=== PATIENT | male | born 1945 | race Caucasian/White ===

== ENCOUNTER 2016-12-28 11:00 | Emergency (ER) | payer MEDICARE, MEDICAID ==
[~2016-12-28] VITALS: Ht 152.4 cm; Wt 63.8 kg
[~2016-12-28 11:00] MED LIST: ALBUTEROL SUL0.083 %; ALEVE220 M1 OR; AMLODIPINE2.5 MG PO; AMOXICILLIN/CL875 MG OR; AMOXICILLIN500 MG PO; AMOXICILLIN875 MG OR; AZELASTINE0.1 %; AZITHROMYCIN500 MG OR; BACTRIM DS1 TAB PO; BENZONATATE200 MG PO; BUSPAR10 M1 PO; CIPRO500 MG PO; CYANOCOBALAM1000 MC1 IJ; CYANOCOBALAM1000 MCG IM; DILAUDID2 MG OR; DOXYCYCL HYC100 MG PO; ERYTHROMYCIN O3.5 GM OP; FLONASE NASAL50 MCG; FLONASE SPRAY50 MC1; HIBICLENS4 % EX; HYDROCO/APAP1 T13 PO; HYDROCORTISO2.51 EX; IPRATROPIU0.5 MG/3 M IN; IPRATROPIUM BROMIDE/; KEFLEX500 MG PO; LAMISIL AT1 % EX; LIPITOR20 M1 PO; LISINOP/HCTZ1 TAB PO; LISINOPRIL10 MG PO; LISINOPRIL20 MG PO; MEDDOSEPAK OR; MULTIVITAMI1 PO; NAPROXEN EC500 MG OR; NASONEX50 MCG/AC; OXYMETAZOLINE; POLYTRIM OU; PREDNISONE20 MG PO; PROTONIX40 MG OR; RHINOCORT; RHINOCORT NAS; SENIOR VITAM OR; TRAMADOL HCL50 MG OR; TRIAMCINOLON0.11 EX; VESICARE5 MG PO; ZITHROMAX250 MG PO; [UNRECOGNIZED DRUG - SUPPLY] XX
[2016-12-28 11:33] LABS: HEMATOCRIT 41.4 % (39.0-50.0); HEMOGLOBIN 13.8 g/dl (14.0-18.0); IMMATURE GRANULOCYTES 0.7 % (0.0-1.0); MEAN CELL VOLUME 94.7 fL CALC (80.0-100.0); MEAN CORPUSCULAR HGB 31.6 pG CALC (26.0-32.0); MEAN CORPUSCULAR HGB CONC 33.3 g/L CALC (32.0-36.0); NEUT# 4.02 thou/uL (1.82-7.42); RED BLOOD COUNT 4.37 mill/uL (4.70-6.10); RED CELL DISTRI WIDTH 14.8 % (11.5-15.5)
[2016-12-28 11:44] LABS: ALBUMIN 4.2 g/dL (3.2-5.0); ALKALINE PHOSPHATASE 84 u/l (38-126); ANION GAP 14 (6-22 (CALC)); BILIRUBIN, TOTAL 0.6 mg/dL (0.0-1.4); BUN 18 mg/dL (8-23); BUN/CREATININE RATIO 23 (12-20 (CALC)); CARBON DIOXIDE 26 mmol/l (22-30); CHLORIDE 103 mmol/l (95-108); CREATININE 0.8 mg/dL (0.7-1.3); GFR > 60 ML/MIN (>=60 (CALC)); GFR FOR AFR.AMER. > 60 ML/MIN (>=60 (CALC)); GLUCOSE 98 mg/dL (82-115); POTASSIUM 4.6 mmol/l (3.5-5.1); SGOT/AST 28 u/l (19-48); SGPT/ALT 30 u/l (11-66); SODIUM 139 mmol/l (137-146)
[2016-12-28 11:56] LABS: MYOGLOBIN 62 ng/mL (0 - 121)
[2016-12-28 13:53] LABS: URINE BILIRUBIN - DIPSTICK NEGATIVE (NEGATIVE); URINE BLOOD DIPSTICK NEGATIVE (NEGATIVE); URINE CLARITY CLEAR; URINE COLOR YELLOW; URINE GLUCOSE - DIPSTICK NEGATIVE (NEGATIVE); URINE KETONE NEGATIVE (NEGATIVE); URINE LEUK ESTERASE NEGATIVE (NEGATIVE); URINE NITRITE - DIPSTICK NEGATIVE (Negative); URINE PROTEIN - DIPSTICK NEGATIVE (NEG-TRACE); URINE UROBILINOGEN - DIPSTICK 0.2 E.U./dL (0.2)
[2016-12-28 15:10] VITALS: BP 145/79
== END 2016-12-28 15:10 | disposition left against medical advice (07) ==
LOC: ED 11:00
PROVIDERS: Emergency Medicine
DX: J44.1 Chronic obstructive pulmonary disease with (acute) exacerbation (principal); Z72.0 Tobacco use; R07.9 Chest pain, unspecified; Z91.19 Patient's noncompliance with other medical treatment and regimen; R00.1 Bradycardia, unspecified; R06.02 Shortness of breath; R00.2 Palpitations

== ENCOUNTER 2017-01-25 10:59 | Emergency (ER) | payer MEDICARE, MEDICAID ==
[~2017-01-25] VITALS: Ht 165.1 cm; Wt 75.0 kg
[2017-01-25] MEDS ORDERED: LORTAB 5-325 MG1 TAB PO (12:41)
[2017-01-25] MEDS ORDERED: AUGMENTIN875TAB PO (12:41)
[2017-01-25 13:12] VITALS: BP 174/81
== END 2017-01-25 13:12 | disposition home or self-care (01) ==
LOC: ED 10:59
PROC: 0HQKXZZ Repair Right Lower Leg Skin, External Approach (ICD-10-PCS; principal; 2017-01-25)
DX: S81.811A Laceration without foreign body, right lower leg, initial encounter (principal); S91.032A Puncture wound without foreign body, left ankle, initial encounter; F17.210 Nicotine dependence, cigarettes, uncomplicated; W54.0XXA Bitten by dog, initial encounter; Y92.008 Other place in unspecified non-institutional (private) residence as the place of occurrence of the external cause

== ENCOUNTER 2017-02-04 10:45 | Emergency (ER) | payer MEDICARE, MEDICAID ==
[~2017-02-04] VITALS: Ht 165.1 cm; Wt 70.0 kg
[~2017-02-04 10:45] MED LIST changes: +AUGMENTIN875TAB PO; +LORTAB 5-325 MG1 TAB PO
[2017-02-04 10:53] VITALS: BP 133/77
== END 2017-02-04 11:05 | disposition home or self-care (01) ==
LOC: ED 10:45
DX: S81.811D Laceration without foreign body, right lower leg, subsequent encounter (principal); W54.0XXD Bitten by dog, subsequent encounter; Z48.02 Encounter for removal of sutures

== ENCOUNTER 2017-07-24 07:51 | Day surgery (SDC) | payer MEDICARE, MEDICAID ==
[~2017-07-24] VITALS: Ht 167.6 cm; Wt 59.0 kg
[2017-07-24] MEDS ORDERED: LOSARTAN POT50 MG PO (08:34)
[2017-07-24] MEDS ORDERED: MELOXICAM7.5 MG PO (08:41)
[2017-07-24] MEDS ORDERED: ALPRAZOLAM0.5 MG PO (08:41)
[2017-07-24] MEDS ORDERED: FISH OIL1000 MG PO (08:43)
[2017-07-24] MEDS ORDERED: TAMSULOSIN HCL0.4 MG PO (08:45)
[2017-07-24] MEDS ORDERED: FLUOXETINE20 MG PO (08:45)
[2017-07-24] MEDS ORDERED: D3 ULTRA ST5000 UNIT PO (08:46)
[2017-07-24] MEDS ORDERED: DRAMAMINE50 M1 PO (08:46)
[2017-07-24 11:12] VITALS: BP 135/73
== END 2017-07-24 11:30 | disposition home or self-care (01) ==
LOC: ENDO 07:51 → ORM 13:15 → ENDO 13:15
PROVIDERS: ATTEND Surgery
PROC: 0DJD8ZZ Inspection of Lower Intestinal Tract, Via Natural or Artificial Opening Endoscopic (ICD-10-PCS; principal; 2017-07-24)
DX: R19.7 Diarrhea, unspecified (principal); K64.4 Residual hemorrhoidal skin tags; K57.30 Diverticulosis of large intestine without perforation or abscess without bleeding

== ENCOUNTER 2018-05-21 09:26 | Emergency (ER) | payer MEDICARE, MEDICAID ==
[~2018-05-21] VITALS: Ht 167.6 cm; Wt 90.0 kg
[~2018-05-21 09:26] MED LIST changes: +ALPRAZOLAM0.5 MG PO; +D3 ULTRA ST5000 UNIT PO; +DRAMAMINE50 M1 PO; +FISH OIL1000 MG PO; +FLUOXETINE20 MG PO; +LOSARTAN POT50 MG PO; +MELOXICAM7.5 MG PO; +TAMSULOSIN HCL0.4 MG PO
[2018-05-21 10:27] LABS: HEMATOCRIT 39.6 % (39.0-50.0); HEMOGLOBIN 13.1 g/dl (14.0-18.0); IMMATURE GRANULOCYTES 1.5 % (0.0-5.0); MEAN CELL VOLUME 94.3 fL CALC (80.0-100.0); MEAN CORPUSCULAR HGB 31.2 pG CALC (26.0-32.0); MEAN CORPUSCULAR HGB CONC 33.1 g/L CALC (32.0-36.0); NEUT# 4.08 thou/uL (1.82-7.42); RED BLOOD COUNT 4.2 mill/uL (4.70-6.10); RED CELL DISTRI WIDTH 14.6 % (11.5-15.5)
[2018-05-21] MEDS ORDERED: OFLOXACIN0.3 % OS (10:33)
[2018-05-21 10:40] LABS: ANION GAP 15 (6-22 (CALC)); BUN 14 mg/dL (8-23); BUN/CREATININE RATIO 20 (12-20 (CALC)); CARBON DIOXIDE 22 mmol/l (22-30); CHLORIDE 105 mmol/l (95-108); CREATININE 0.7 mg/dL (0.7-1.3); GFR > 60 ML/MIN (>=60 (CALC)); GFR FOR AFR.AMER. > 60 ML/MIN (>=60 (CALC)); POTASSIUM 4.5 mmol/l (3.5-5.1); SODIUM 138 mmol/l (137-146)
[2018-05-21 16:10] VITALS: BP 138/80
== END 2018-05-21 16:10 | disposition short-term general hospital (02) ==
LOC: ED 09:26
PROVIDERS: Family Medicine
DX: S00.83XA Contusion of other part of head, initial encounter (principal); H53.8 Other visual disturbances; H57.12 Ocular pain, left eye; W10.9XXA Fall (on) (from) unspecified stairs and steps, initial encounter; Y92.009 Unspecified place in unspecified non-institutional (private) residence as the place of occurrence of the external cause; I10 Essential (primary) hypertension
CPT/HCPCS: Q9967

== ENCOUNTER 2020-03-02 17:25 | Inpatient (IN) | payer MEDICARE, MEDICAID ==
[~2020-03-02] VITALS: Ht 167.6 cm; Wt 61.0 kg
[~2020-03-02 17:25] MED LIST changes: +AMLODIPINE10 MG PO; +ARTIFI TEARS OU; +DOCU SOFT100 MG PO; +MELOXICAM15 MG PO; +OFLOXACIN0.3 % OS; +SENOKOT S1 TAB PO; +SENOKOT8.6 MG PO; +TRIPLE ANTI6 EX; +XANAX XR0.5 MG PO; +ZESTRIL40 MG PO; +[UNRECOGNIZED DRUG - OTHER] OU; +[UNRECOGNIZED DRUG - OTHER] PO
--- NOTE | 2020-03-02 17:25 | NUR ---
PATIENT ARRIVED GOING IN AN OUT OF RESPONSIVENESS. WHEN PATIENT BECOMES RESPONSIVE SPONTANEOUSLY PATIENT MOVES BILATERAL ARMS AND LEGS IN ERRATIC MOTIONS AND UNABLE TO DETERMINE WHAT PATIENT IS SAYING. PATIENT PUPILS PINPOINT AND FIXED. PATIENT NOT FOLLOW COMMANDS AND REACHING FOR STAFF AND MEDICAL EQUIPMENT. PATIENT HAS EXTRACTOR FILLER DEPUTY AT BEDSIDE. MD AT BEDSIDE FOR EVAL AND PREPARING FOR RAPID SEQUENCE INTUBATION.
--- NOTE | 2020-03-02 17:38 | NUR ---
PATIENT INTUBATED 8FR AND 22 AT THE LIP. PATIENT TOLERATED WELL. PATIENT HAS EQUAL RISE AND FALL BILATERAL BREATH SOUNDS AND POSITIVE CO2 DETECTOR
[2020-03-02 18:25] LABS: HEMOGLOBIN 14.3 g/dl (14.0-18.0); IMMATURE GRANULOCYTES 0.7 % (0.0-5.0); MEAN CELL VOLUME 99.3 fL CALC (80.0-100.0); MEAN CORPUSCULAR HGB 31.8 pG CALC (26.0-32.0); NEUT# 4.88 thou/uL (1.82-7.42); RED BLOOD COUNT 4.5 mill/uL (4.70-6.10); RED CELL DISTRI WIDTH 13.5 % (11.5-15.5)
[2020-03-02 18:29] LABS: HEMATOCRIT 44.7 % (39.0-50.0)
[2020-03-02 18:29] LABS: URINE BILIRUBIN - DIPSTICK NEGATIVE (NEGATIVE); URINE BLOOD DIPSTICK NEGATIVE (NEGATIVE); URINE COLOR YELLOW; URINE GLUCOSE - DIPSTICK NEGATIVE (NEGATIVE); URINE KETONE TRACE mg/dL (NEGATIVE); URINE LEUK ESTERASE NEGATIVE (NEGATIVE); URINE NITRITE - DIPSTICK NEGATIVE (Negative); URINE PROTEIN - DIPSTICK TRACE mg/dL (NEG-TRACE); URINE SPECIFIC GRAVITY >=1.030; URINE UROBILINOGEN - DIPSTICK 0.2 E.U./dL (0.2)
--- NOTE | 2020-03-02 18:30 | NUR ---
PATEINT REMAINS INTUBATED AT THIS TIME. OFFICER AT BEDSIDE. AWAITNG LAB AND RADIOLOGY RESULTS.
--- NOTE | 2020-03-02 18:45 | NUR ---
REPORT GIVEN TO ADAM LEMUS
--- NOTE | 2020-03-02 18:50 | NUR ---
IN ROOM TO ASSESS PT. ON VENTILATOR, UNRESPONSIVE AT THIS TIME. DIPRIVAN INFUSING WELL, NO REDNESS OR EDEMA NOTED. LANDERS CATH PATIENT AND DRAINING YELLOW URINE.
[2020-03-02 19:07] LABS: PROTHROMBIN TIME 9.6 SECONDS (9.0-12.5)
[2020-03-02 19:07] LABS: ALBUMIN 4.3 g/dL (3.2-5.0); ALKALINE PHOSPHATASE 92 u/l (38-126); ANION GAP 12 (6-22 (CALC)); BUN 20 mg/dL (8-23); BUN/CREATININE RATIO 22 (12-20 (CALC)); CARBON DIOXIDE 26 mmol/l (22-30); CHLORIDE 103 mmol/l (95-108); CPK 69 u/l (52-200); CREATININE 0.9 mg/dL (0.7-1.3); ETHYL ALCOHOL 0 mg/dl (0-30); GFR > 60 ML/MIN (>=60 (CALC)); GFR FOR AFR.AMER. > 60 ML/MIN (>=60 (CALC)); LIPASE 55 u/l (23-300); MAGNESIUM 2.5 mg/dL (1.6-2.3); SGOT/AST 28 u/l (19-48); SODIUM 137 mmol/l (137-146); TOTAL PROTEIN 7.4 g/dL (6.3-8.2)
[2020-03-02 19:10] LABS: BILIRUBIN, TOTAL 0.8 mg/dL (0.0-1.4)
[2020-03-02 19:39] LABS: TSH, 3RD GENERATION 1.05 uIU/mL (0.47 - 4.68)
--- NOTE | 2020-03-02 19:48 | NUR ---
PT. BP 47/32. LEVOPHED STARTED AT 8 MCG, 30 ML HR. 1948 DRIP INCREASED TO 9 MCG MIN. 1949 BP 90/55 LEVOPHED INCREASED TO 10 MCG MIN.1952 BP 119/67, 1958 139/79. 1999 PT. TAKEN TO X-RAY VIA STRETCHER. 2029 PT. RETURNED. BP 202/91 LEVOPHED DECREASED TO 8 MCG MIN. 2041 BP 199/91, 2052 BP 191/84 LEVOPHED DECREASED TO 7 MCG/MIN.
--- NOTE | 2020-03-02 21:03 | NUR ---
OG DRAINING A MODERATE AMT. LIGHT BROWN FLUID.
--- NOTE | 2020-03-02 21:16 | NUR ---
BP 167/76 LEVOPHED DECRESED TO 6 MCG/MIN.
--- NOTE | 2020-03-02 21:24 | NUR ---
BP NOW 142/61.
--- NOTE | 2020-03-02 21:30 | NUR ---
Admission Note Report Given to: RODDY LEMUS. Transported by: Wheelchair X Stretcher Transported with: X Nurse X Transporter X Patent IV X O2 X Pattern Chain Maker Supervisor Location: X ICU [facility]
--- NOTE | 2020-03-02 21:45 | NUR ---
PT. TAKEN TO ICU VIA STRETCHER WITH RESP. THERAPIST.
--- NOTE | 2020-03-02 21:55 | NUR ---
RECEIVED PT TO ICU BED 8. PT VERY RESTLESS, TRYING TO PULL ON VENT TUBE. PT ON VENT, RESP TECH AT BEDSIDE. PT WITH OG TUBE, LANDERS, IV TWIN CATH TO R AC. #20IV TO L AC. DCSO AT BEDSIDE. PT WITH CUFFS TO R HAND AND ANKLES. BRUISING NOTED AROUND ANKLES. DIPROVAN AND LEVOPHED GTT INFUSING ALONG WITH LR.
[2020-03-02 22:15] VITALS: BP 159/70
[2020-03-02 22:30] VITALS: BP 155/84
[2020-03-02 22:45] VITALS: BP 171/88
--- NOTE | 2020-03-02 22:45 | NUR ---
LEVOPHED TITRATED OFF. B/P 171/88
[2020-03-02 23:00] VITALS: BP 172/92
--- NOTE | 2020-03-02 23:00 | NUR ---
PT MOVING, PULLING AGAINST RESTRAINTS.
[2020-03-02 23:15] VITALS: BP 148/77
[2020-03-03] VITALS (60 sets, daily range): BP systolic 75–187; BP diastolic 43–102
--- NOTE | 2020-03-03 01:36 | NUR ---
RESP TECH AT BEDSIDE.
--- NOTE | 2020-03-03 02:00 | NUR ---
PT REMAINS ON VENT, MOVING LOWER EXTREMITIES, SOFT RESTRAINTS TO BILAT WRIST.
--- NOTE | 2020-03-03 04:00 | NUR ---
PT REMAINS ON VENT, SOFT RESTRAINTS TO BILAT WRIST. DCSO AT BEDSIDE. REMAINS ON DIPROVAN GTT.
[2020-03-03 05:49] LABS: HEMATOCRIT 41.8 % (39.0-50.0); HEMOGLOBIN 13.5 g/dl (14.0-18.0); IMMATURE GRANULOCYTES 0.3 % (0.0-5.0); MEAN CELL VOLUME 98.4 fL CALC (80.0-100.0); MEAN CORPUSCULAR HGB 31.8 pG CALC (26.0-32.0); MEAN CORPUSCULAR HGB CONC 32.3 g/dL CAL (32.0-36.0); NEUT# 5.65 thou/uL (1.82-7.42); RED BLOOD COUNT 4.25 mill/uL (4.70-6.10); RED CELL DISTRI WIDTH 13.7 % (11.5-15.5)
--- NOTE | 2020-03-03 06:00 | NUR ---
PT MOVING LOWER EXTREMITIES, PULLING AT WRIST RESTRAINTS. RESP TECH AT BEDSIDE FOR TUBE CULLEN CHANGE. DCSO AT BEDSIDE.
[2020-03-03 06:11] LABS: ALKALINE PHOSPHATASE 69 u/l (38-126); ANION GAP 9 (6-22 (CALC)); BILIRUBIN, TOTAL 0.5 mg/dL (0.0-1.4); BUN 18 mg/dL (8-23); BUN/CREATININE RATIO 23 (12-20 (CALC)); CALCULATED LDLCHOLESTEROL 94 mg/dL (62-129 (CALC)); CARBON DIOXIDE 26 mmol/l (22-30); CHLORIDE 106 mmol/l (95-108); CHOLESTEROL HDL RATIO 4.5 (<4.4 (CALC)); CREATININE 0.8 mg/dL (0.7-1.3); GFR > 60 ML/MIN (>=60 (CALC)); GFR FOR AFR.AMER. > 60 ML/MIN (>=60 (CALC)); HDL CHOLESTEROL 43 mg/dL (>=40); MAGNESIUM 2.4 mg/dL (1.6-2.3); POTASSIUM 3.8 mmol/l (3.5-5.1); SGOT/AST 24 u/l (19-48); SODIUM 138 mmol/l (137-146); TOTAL CHOLESTEROL 191 mg/dl (0-199); TOTAL TRIGLYCERIDES 268 mg/dl (30-149); VLDL CHOLESTROL 54 mg/dl (0-38 (CALC))
[2020-03-03 06:12] LABS: ALBUMIN 3.3 g/dL (3.2-5.0); TOTAL PROTEIN 5.5 g/dL (6.3-8.2)
--- NOTE | 2020-03-03 06:45 | NUR ---
REPORT RECEIVED FROM RODDY LEMUS. CARE ASSUMED.
--- NOTE | 2020-03-03 07:00 | NUR ---
PT RESTING IN BED INTUBATED AND SEDATED. SHIFT ASSESSMENT COMPLETED AT THIS TIME. IV PATENT X2. REPOSITIONED PT IN BED. GUARD AT BEDSIDE. CALL LIGHT IN REACH. WILL CONTINUE TO MONITOR CLOSELY.
--- NOTE | 2020-03-03 07:20 | NUR ---
RADIOLOGY AT BEDSIDE FOR PORTABLE CXR
--- NOTE | 2020-03-03 08:30 | NUR ---
CHANGED PROPOFOL BOTTLE AND TUBING AT THIS TIME.
--- NOTE | 2020-03-03 09:05 | NUR ---
DR MCNEILL AT BEDSIDE AT THIS TIME.
--- NOTE | 2020-03-03 09:52 | NUR ---
PT RESTING IN BED INTUBATED AND SEDATED AT THIS TIME. STARTING TO WEAN PROPOFOL. GUARD REMAINS AT BEDSIDE WILL CONTINUE TO MONTIOR.
--- NOTE | 2020-03-03 11:30 | NUR ---
lab at bedside to obtain troponin
--- NOTE | 2020-03-03 12:00 | NUR ---
bp 75/43 spoke with brian student counsellor 1l ns bolus.
--- NOTE | 2020-03-03 13:00 | NUR ---
LAB AT BEDSIDE TO REDRAW TROPONIN.
--- NOTE | 2020-03-03 13:22 | NUR ---
RT AT BEDSIDE FOR EKG
--- NOTE | 2020-03-03 14:00 | NUR ---
WEANING PROPOFOL DUE TO BRADYCARDIA. STARTING VERSED DRIP. GUARD AT BEDSIDE. URINE EMPTIED. 125CC. DR MCNEILL NOTIFIED.
--- NOTE | 2020-03-03 15:59 | NUR ---
PT RESTING IN BED INTUBATED AND SEDATED. HR REMAINS BRADYCARDIC 40S-50S. GUARD AT BEDSIDE. WILL CONTINUE TO CLOSELY MONITOR.
--- NOTE | 2020-03-03 16:50 | NUR ---
OFFICER FROM [facility] DEPT BROUGHT IN PT BELONGINGS WITH RECEIPT. BELONGINGS PLACED IN ROOM. PATIENT RELEASED ON OWN RECOGNIZANCE. PAPERWORK IN ROOM AND ON CHART.
--- NOTE | 2020-03-03 17:31 | NUR ---
PT LIFTING LEGS AND PULLING AT RESTRAINTS. ATIVAN 1MG GIVEN PER MD ORDER
--- NOTE | 2020-03-03 18:20 | NUR ---
PT RESTING IN BED INTUBATED AND SEDATED. APPEARS TO BE LESS AGITATED AT THIS TIME. HR REMAINS BRADYCARDIC. WILL CONTINUE TO MONITOR CLOSELY.
--- NOTE | 2020-03-03 19:10 | NUR ---
PATIENT IS SEDATED AND INTUBATED, RASS SCORE -3, PATIENT DOES NOT DO EYE CONTACT BUT DOES MOVE WITH PAINFUL STIMULI, HR RANGES IN THE 40'S, WHEN STARTLED HIS HR RAISES TO 60'S. VENT SETTINGS: AC, RATE 16, PRRP 5, FIO2 35%, TIDAL VOLUME 420. ET SIZE 8.0, 22 AT THE LIP, OG INTACT AT LCS, BROWN DRAINAGE NOTED. O2 SATS ARE 100%. AFEBRILE. BILAT WRIST RESTRAINTS INTACT, LOOSEENED FOR NURSING CARE. LANDERS INTACT, URINE IS YELLOW/CLOUDY. RAC TWIN CATH FLSUHES PROPERLY, NS AT 125 ML/HR, MIDAZOLAM DRIP AT 10 MG/HR. SCD'S LOOSENED FOR REPOSITONING AND HEELS ELEVATED. NURSE ASSESSMENT PERFORMED. MOUTH CARE PROVIDED, ET SUCTIONED AND MOUTH SUCTIONED, PT DOES BITE DOWN AND MOVES HEAD AROUND WHEN ATTEMPTING TO SUCTION. WILL CONTINUE TO MONITOR.
--- NOTE | 2020-03-03 21:13 | NUR ---
PATIENT REPOSITIONED TO HIS RIGHT SIDE. ET SUCTIONED. PT MOVES HEAD AROUND WHEN PROVIDING PATIENT CARE. HR RAISES TO 50'S.
[2020-03-03] MEDS ORDERED: XANAX0.5 MG PO (23:05)
[2020-03-03] MEDS ORDERED: AMLODIPINE BESY10 MG PO (23:05)
[2020-03-03] MEDS ORDERED: PROVENTIL HFA IN (23:05)
[2020-03-03] MEDS ORDERED: TAMSULOSIN0.4 MG PO (23:09)
[2020-03-03] MEDS ORDERED: FLONASE AL50 MCG/AC1 (23:09)
[2020-03-03] MEDS ORDERED: LEXAPRO10 MG PO (23:09)
[2020-03-03] MEDS ORDERED: CABERGOLINE PO (23:09)
[2020-03-03] MEDS ORDERED: LISINOPRIL40 MG PO (23:09)
[2020-03-03] MEDS ORDERED: MELOXICAM15 MG PO (23:10)
--- NOTE | 2020-03-03 23:24 | NUR ---
PATIENT REPSOITONED, RESTRAINTS RELEASED FOR REPOSITIONING, NOW INTACT. RASS SCORE -4, MIDAZOLAM DRIP WEANED TO 90 ML/HR. HEELS ELEVATED, ET SUCTIONED WELL MOUTH, MOUTH CARE PROVIDED.
[2020-03-04] VITALS (49 sets, daily range): BP systolic 112–203; BP diastolic 56–97
--- NOTE | 2020-03-04 02:07 | NUR ---
MOUTH WAS SUCTIONED AND PATIENT BECMAE AGITATED HAD HIS EYES OPEN, I HAD JUST WEANED HIS MIDAZOLAM DRIP TO 7MG/HR. NOW PLACED BACK AT 8 MG/HR. PT WAS REASSURED, AND RESTRAINTS ADJUSTED DUE TO HE WAS REACHING FOR HIS ET TUBE.
[2020-03-04 05:43] LABS: HEMATOCRIT 37.8 % (39.0-50.0); MEAN CELL VOLUME 100.8 fL CALC (80.0-100.0); MEAN CORPUSCULAR HGB CONC 31.7 g/dL CAL (32.0-36.0); RED BLOOD COUNT 3.75 mill/uL (4.70-6.10); RED CELL DISTRI WIDTH 13.9 % (11.5-15.5)
[2020-03-04 06:05] LABS: ALKALINE PHOSPHATASE 64 u/l (38-126); ANION GAP 6 (6-22 (CALC)); BILIRUBIN, TOTAL 0.5 mg/dL (0.0-1.4); BUN 9 mg/dL (8-23); BUN/CREATININE RATIO 14 (12-20 (CALC)); CARBON DIOXIDE 21 mmol/l (22-30); CHLORIDE 115 mmol/l (95-108); CREATININE 0.6 mg/dL (0.7-1.3); GFR > 60 ML/MIN (>=60 (CALC)); GFR FOR AFR.AMER. > 60 ML/MIN (>=60 (CALC)); POTASSIUM 3.6 mmol/l (3.5-5.1); SGOT/AST 20 u/l (19-48); SODIUM 139 mmol/l (137-146); TOTAL PROTEIN 4.8 g/dL (6.3-8.2)
[2020-03-04 06:11] LABS: ALBUMIN 2.6 g/dL (3.2-5.0)
--- NOTE | 2020-03-04 06:26 | NUR ---
CXR TAKEN, PT BECOMES AGITATED. MIDAZOLAM DRIP AT 8 MG/HR. HR RANGES 70'S WHEN PT IS STARTLED. BP RISES TO 170'S SYSTOLIC.
--- NOTE | 2020-03-04 07:15 | NUR ---
pt intubated and sedated; no apparent distress noted per web content writer; assessment completed at this time; pt sedated/ responds to vocal stimulation; does not make eye contact, follow commands; turns head in direction of web content writer voice; no s/s of pain noted; resp even and unlabored; lungs clear/ diminished; skin color wnl; vent intact and maintained with setting of AC mode, rate 18, TV 420, peep 5.0, FiO2 28%; 8.0 ETT tube intact secured at the 24cm lip line; hr reg; strong pulses; no edema noted; sr/sb on monitor; bilat scds intact; abd soft with bs present; no bm noted per web content writer; og tube intact to lis with brown gastric content noted; placement verified via air insertion/ ascult; twin cath present to rac with ivf/ versed gtt infusing at 8mg/hr; no redness or edema noted at site; oral care/ repositined done; bilagt wrist restraints intact; will continue to monitor
--- NOTE | 2020-03-04 08:00 | NUR ---
intubated and sedated; no apparent distress noted; vent intact and maintained; sr on monitor; friedman to gravity; restraints maintained; will continue to monitor closely
--- NOTE | 2020-03-04 08:45 | NUR ---
Dr Marcelino present at bedside to assess pt; plans for pt to be extubated today; RT notified; versed gtt being weaned; will continue to monitor
--- NOTE | 2020-03-04 09:32 | NUR ---
pt more alert; able to squeeze tis advertising copywriter hands as per request; pt continues with restless/anxiousness; restraints reinforced; pt education on condition and plan for extubation; will continue to monitor
--- NOTE | 2020-03-04 10:11 | NUR ---
remains intubated and sedated; no apparent distress noted; iv intact and patent; no redness or edema noted at site; friedman to gravity; sr on monitor; restraints intact; will continue to monitor
--- NOTE | 2020-03-04 10:27 | NUR ---
pt remains intubated; no apparent distress noted; resp even and unlabored; iv intact with versed being weaned; friedman to gravity; remains restless and anxious; restraints intact; sr/pvc on monitor; pt able to follow some commands such as squeezing this physician underwriter's hand and relaxing legs down; will continue to monitor
--- NOTE | 2020-03-04 11:30 | NUR ---
versed weaned; pt restless in bed; restraints reinforced; iv intact; friedman to gravity; vent intact and maintained; will continue to monitor
--- NOTE | 2020-03-04 11:57 | NUR ---
complete bed bath and linen change; oral care with toothette; will continue to monitor
--- NOTE | 2020-03-04 13:07 | NUR ---
vent changed to CPAP mode; pt able to follow verbal instructions per RT Howard and AD OPERATIONS INTERN Vest present at bedside;
--- NOTE | 2020-03-04 13:09 | NUR ---
Dr Marcelino present at bedside; pt follows verbal commands;
--- NOTE | 2020-03-04 13:17 | NUR ---
pt extubated per RT as per Dr Marcelino request; tolerated well; o2 per nc applied at 3L; orally sucitoned; restraints discontinued; will continue to monitor
--- NOTE | 2020-03-04 14:15 | NUR ---
awake in bed; remains drowsy; able to answer basic questions; continues to follow commands; iv intact and patent; bp elevated/ medicated; sr on monitor; friedman to gravity draining clear yellow urine; o2 per nc at 3L o2 sat 99-100%; call light within reach; will continue to monitor
--- NOTE | 2020-03-04 16:02 | NUR ---
resting in bed with eyes closed; easily aroused; offers no complaints; no apparent distress noted; iv intact and patent; friedman to gravity; sr on monitor; pt repositions self freq; suction at bedside/ pt has required suctioning frequently since extubation; call light within reach; will continue to monitor
--- NOTE | 2020-03-04 18:16 | NUR ---
resting in bed with eyes closed; no apparent distress noted; pt easily arousable; offers no complaints; oral care with toothette; friedman to gravity; iv intact and patent; no redness or edema noted at site; sr/pvc on monitor; call light within reach
--- NOTE | 2020-03-04 19:05 | NUR ---
PT. DROWSY; ALERT TO SELF ONLY. ASSESSMENT COMPLETED. IV SITE PATENT TO RAC; PT. WITH GENERALIZED SWELLING NOTED. O2 INFUSING @3LITERS/MIN PER NC AND SPO2 100%. SR ON THE MONITOR AT THIS TIME. VSS. ORAL CARE PROVIDED AND ORAL SUCTION PERFORMED. REPOSITIONED PT. IN BED. LANDERS CATHETER IN PLACE AND DRAINING AT GRAVITY LEVEL. WILL CONTINUE TO MONITOR. CALL LIGHT IS IN REACH. WILL CONTINUE TO MONITOR.
--- NOTE | 2020-03-04 20:48 | NUR ---
PT. RESTLESS AND PULLING AT CORDS ATTEMPTED TO RE-ORIENT NUMEROUS TIMES AND UNSUCCESSFUL; MEDICATED WITH ORDERED PRN ATIVAN; WILL REASSESS. BED ALARM ON FOR SAFETY.
--- NOTE | 2020-03-04 21:37 | NUR ---
PT. CONTINUES TO BEND RIGHT ARM AND OCCLUDING IV SITE; NEW IV SITE STARTED TO LFA X2 ATTEMPT AND IVF SWITCHED TO NEW SITE AND RAC IS SL NOW.
--- NOTE | 2020-03-04 23:47 | NUR ---
PT. RESTLESS AND REMOVED IV SITE TO LFA; PT. HAD CHEWED THE J-LOOP; CATHETHER TIP INTACT. MANUAL B/P 180/78 AND ORDERED PRN ENALOPRIL GIVEN; WILL REASSESS. PT. ASSISTED ON AND OFF BEDPAN, PT. ONLY HAD A SMEAR OF BM. ASSISTED TO REPOSITION.
[2020-03-05] VITALS (18 sets, daily range): BP systolic 142–194; BP diastolic 66–99
--- NOTE | 2020-03-05 01:15 | NUR ---
PT. CLEANED OF A MODERATE INCONTINENCE OF STOOL; PT. CONTINUES TO PULL AT LANDERS CATHETER AND OTHER TUBING; RE-ORIENTED MULTIPLE TIMES. WILL CONTINUE TO MONITOR, CALL LIGHT IS IN REACH. BED ALARM ON.
--- NOTE | 2020-03-05 01:43 | NUR ---
PT. REMAINS RESTLESS AND MEDICATED WITH ORDERED PRN ATIVAN; WILL REASSESS.
--- NOTE | 2020-03-05 04:20 | NUR ---
PT. REMAINS RESTLESS. SIPS OF WATER PROVIDED AND TOLERATED WELL. AM LABS DRAW BY THIS BAIT DIGGER. MANUAL B/P OBTAINED 164/72. WILL CONTINUE TO MONITOR. BED ALARM ON FOR SAFETY. CALL LIGHT IS IN REACH.
[2020-03-05 04:32] LABS: HEMATOCRIT 38.2 % (39.0-50.0); HEMOGLOBIN 12.5 g/dl (14.0-18.0); MEAN CELL VOLUME 97.2 fL CALC (80.0-100.0); MEAN CORPUSCULAR HGB 31.8 pG CALC (26.0-32.0); MEAN CORPUSCULAR HGB CONC 32.7 g/dL CAL (32.0-36.0); RED BLOOD COUNT 3.93 mill/uL (4.70-6.10); RED CELL DISTRI WIDTH 13.3 % (11.5-15.5)
[2020-03-05 05:14] LABS: ALBUMIN 3.1 g/dL (3.2-5.0); ALKALINE PHOSPHATASE 71 u/l (38-126); ANION GAP 12 (6-22 (CALC)); BUN 6 mg/dL (8-23); BUN/CREATININE RATIO 9 (12-20 (CALC)); CARBON DIOXIDE 22 mmol/l (22-30); CHLORIDE 109 mmol/l (95-108); CREATININE 0.6 mg/dL (0.7-1.3); GFR > 60 ML/MIN (>=60 (CALC)); GFR FOR AFR.AMER. > 60 ML/MIN (>=60 (CALC)); MAGNESIUM 1.9 mg/dL (1.6-2.3); POTASSIUM 3.8 mmol/l (3.5-5.1); SGOT/AST 29 u/l (19-48); SODIUM 139 mmol/l (137-146); TOTAL PROTEIN 5.5 g/dL (6.3-8.2)
[2020-03-05 05:15] LABS: BILIRUBIN, TOTAL 0.8 mg/dL (0.0-1.4)
--- NOTE | 2020-03-05 05:42 | NUR ---
pt. continues being restless and aggitated throwing his legs over the side rails. attempted to give relaxation techniques and re-orinetation without success; medicated with ordered prn ativan; will reassess.
--- NOTE | 2020-03-05 06:10 | NUR ---
PT. MEDICATED WITH IV PRN ENALAPRIL FOR B/P 175/66; WILL REASSESS. O2 TITRATED DOWN TO 2LITERS/MIN PER NC AND SPO2 REMAINS 99-100%. BED ALARM ON FOR SAFTEY. IV SITE PATENT AND ORDERED IVF INFUSING WELL.
--- NOTE | 2020-03-05 07:00 | NUR ---
pt noted restless in bed; fidgeting with monitoring cords and friedman catheter; no apparent distress noted; assessment completed at this time; pt alert to person only; pinpoint pupils; speech very low (whispers) and raspy; pt denies pain; no n/v noted; resp even and unlabored/ shallow; lungs clear/diminished; skin color wnl; o2 per nc at 2L; o2 sat 99%; suction at bedside; hr reg; strong pulses; generalized edema/ facial edema noted; sr/pvc on monitor; bilat scds intact; abd soft with bs present; no bm noted per blog writer; friedman to gravity draining clear yellow urine; twin cath to rac flushed and patent; ivf infusing; pt cont to bend arm; plan of care/ am meds explained; call light within reach; bed alarm activated for pt safety; will continue to monitor
--- NOTE | 2020-03-05 07:20 | NUR ---
bed alarming; pt attempting to climb out of bed; repositioned for comfort; will continue to monitor
--- NOTE | 2020-03-05 07:38 | NUR ---
bed alarming; pt noted with both legs out of the bed; lg loose stool incontinence noted; pericare per staff; catheter care; repositioned for comfort; pt able to take am meds without difficulty; will continue to monitor closely
--- NOTE | 2020-03-05 08:05 | NUR ---
resting in bed with eyes closed; no apparent distress noted; sr/pvc on monitor; friedman to gravity; o2 per nc; call light within reach; will continue to monitor
--- NOTE | 2020-03-05 09:00 | NUR ---
Dr Marcelino present at bedside to assess pt and discuss plan of care; verbal order received to apply restraints due to pt pulling at monitoring cords, friedman, scds; will continue to monitor
--- NOTE | 2020-03-05 09:40 | NUR ---
pt has removed o2 sat monitoring probe; senior technical writer attempts to reapply; pt now kicking at nursing staff; staff attempting to reorient pt; repositioned for comfort; wrist restraints reinforced being that pt has removed right wrist from restraint; scds removed per staff d/t pt cont pulling at sleeves; bilat knee high abilio hose applied; po fluids provided; friedman to gravity; bed alarm set for pt safety; will continue to monitor
--- NOTE | 2020-03-05 10:05 | NUR ---
awake; cont to have legs out of bed; restraints intact; o2 per nc; friedman to gravity; will continue to monitor
--- NOTE | 2020-03-05 10:30 | NUR ---
awake in bed; confused; legs noted out of bed; lg incontinence of loose brown stool; pt noted digging in stool; restraints released for nursing care; pt becomes slightly combative/ swatting at staff; pericare per staff/ partial bath; medicated with ativan as per orders for agitation; #20 started to lw x1 attempt; iv fluids infusing without complication; st/pvc on monitor; bed alarm active for pt safety; continue to monitor
--- NOTE | 2020-03-05 11:26 | NUR ---
awake but drowsy; noted with legs out of bed; iv intact; friedman to gravity; pulse ox probe re-applied; o2 per nc; sr/ pvc on monitor; reoriented; oral care provided with toothette; po fluids provided; repositioned for comfort; will continue to monitor
--- NOTE | 2020-03-05 13:03 | NUR ---
pt noted climbing out of bed; drowsy; iv intact and patent; no redness or edema noted at site; st on monitor; o2 per nc; restraints reinforced; will continue to monitor closely
--- NOTE | 2020-03-05 13:12 | NUR ---
awake in bed; agitated/anxious; unable to reoriented; tp continuously attempting to climb out of bed; st pac/pvc 140s on monitor; iv intact and patent; call light within reach; will continue to monitor
--- NOTE | 2020-03-05 13:37 | NUR ---
pt very anxious; pericare/ partial bath per staff for lg loose incont brown stool; iv to rac removed due to partially dislodged; catheter tip intact; bruising noted site from kerlix security dressing; repositioned; friedman to gravity; #20 to lw remains intact; now nsr on monitor; will continue to monitor
--- NOTE | 2020-03-05 14:00 | NUR ---
pt awake with legs out of bed; restraints intact; o2 per nc; iv intact and patent; sr/pt pvc on monitor; friedman to gravity; pt states "I want to get up"; condition explained; pt repositioned for comfort; will continue to monitor
--- NOTE | 2020-03-05 14:42 | NUR ---
Dr Marcelino informed of pt condition/ agitation and ineffectiveness of ativan; EKG results reviewed; orders received and on chart
--- NOTE | 2020-03-05 16:05 | NUR ---
awake in bed; restraints intact; pt noted kicking bottom side rail; st on monitor; continues to attempt to climb out of bed; friedman to gravity; o2 per nc; call light within reach; will continue to monitor
--- NOTE | 2020-03-05 18:07 | NUR ---
awake in bed; restless/ anxious; cont to attempt to climb out of bed; iv intact and patent; no redness or edema noted at site; o2 per nc; friedman to gravity; restraints intact; oral care toothette; pt declined meal/ medical underwriter at bedside attempting to feed; bed alarm set; call light within reach
--- NOTE | 2020-03-05 19:10 | NUR ---
resting quietly. nad. hob remains elevated. o2 cont per nc. child monitor shows sinus rhythm pvcs hr 84. #20 lt wrist. ns infusing @ 125cchr. friedman cath in place. urine clear yellow. bilat wrist restraints & fall precautions cont.
--- NOTE | 2020-03-05 22:00 | NUR ---
eyes closed. no distress. child monitor shows sinus rhythm hr 104.
[2020-03-06] VITALS (13 sets, daily range): BP systolic 142–184; BP diastolic 57–122
--- NOTE | 2020-03-06 00:01 | NUR ---
eyes closed. no distress. o2 cont. nad.
--- NOTE | 2020-03-06 02:00 | NUR ---
resting quietly. resps even & unlabored. nad. ivf infusing well.
--- NOTE | 2020-03-06 05:14 | NUR ---
lab here. blood drawn.
--- NOTE | 2020-03-06 05:20 | NUR ---
am care given x2 assists. alyssa well.
[2020-03-06 05:49] LABS: HEMATOCRIT 42.9 % (39.0-50.0); HEMOGLOBIN 14.2 g/dl (14.0-18.0); MEAN CELL VOLUME 95.3 fL CALC (80.0-100.0); MEAN CORPUSCULAR HGB 31.6 pG CALC (26.0-32.0); MEAN CORPUSCULAR HGB CONC 33.1 g/dL CAL (32.0-36.0); RED BLOOD COUNT 4.5 mill/uL (4.70-6.10); RED CELL DISTRI WIDTH 12.7 % (11.5-15.5)
[2020-03-06 06:14] LABS: ALKALINE PHOSPHATASE 85 u/l (38-126); ANION GAP 15 (6-22 (CALC)); BUN 5 mg/dL (8-23); BUN/CREATININE RATIO 12 (12-20 (CALC)); CARBON DIOXIDE 24 mmol/l (22-30); CHLORIDE 100 mmol/l (95-108); CREATININE 0.5 mg/dL (0.7-1.3); GFR > 60 ML/MIN (>=60 (CALC)); GFR FOR AFR.AMER. > 60 ML/MIN (>=60 (CALC)); POTASSIUM 4.1 mmol/l (3.5-5.1); SGOT/AST 47 u/l (19-48); SODIUM 135 mmol/l (137-146); TOTAL PROTEIN 6.6 g/dL (6.3-8.2)
[2020-03-06 06:19] LABS: ALBUMIN 3.9 g/dL (3.2-5.0)
--- NOTE | 2020-03-06 06:30 | NUR ---
legs over siderails. pullied iv out, cardiac nurse practitioner off. #20 lac x1 attempt. ativan 1mg ivp given.
--- NOTE | 2020-03-06 07:06 | NUR ---
pt resting in bed with eyes closed; very restless; easily aroused; offers no complaints; assessment completed at this time; pt alert to person only; speech garbled and low; no s/sx/ grimaces of pain noted; no n/v noted; resp even and unlabored; lungs clear/ diminished bases; skin color wnl; o2 per nc at 2: o2 sat 99%; senior media director cough noted; suction set up at bedside; hr reg; strong pulses; trace generalized edema noted; sr/pvc on monitor; bilat knee high abilio hose intact; abd soft with bs present; no bm noted per jingle writer; friedman to gravity draining clear yellow urine; cath strap intact; #20 to lac patent with ivf infusing without complication; no redness or edema noted at site; bilat wrist restraints released for nursing care/rom and reapplied; plan of care explained; repositioned; call light within reach; will continue to monitor
--- NOTE | 2020-03-06 08:20 | NUR ---
awake in bed; restless/anxious; noted with legs out of bed; restraints remain intact; pt fed 25% breakfast and tolerated well; st/pvc on monitor; friedman to gravity; o2 per nc; iv intact and patent; no redness or edema noted at site; call light within reach; will continue monitor
--- NOTE | 2020-03-06 09:00 | NUR ---
Dr Marcelino present at bedside; MD informed of tachycardia with agitation; MD also informed of increase in frequency of pvc; cardiac strips reviewed per md; will continue to monitor
--- NOTE | 2020-03-06 09:02 | NUR ---
arrythmia/idioventricular rhythm noted; noted; Dr Coronado on unit to reviewed; orders received to consult cardiology and notify tomorrow am; will continue to monitor
--- NOTE | 2020-03-06 10:15 | NUR ---
attempting to climb out of bed; no apparent distress noted; iv to lac noted leaking; iv catheter removed with tip intact; #22 started to rw x1 attempt; flushed and patent; ivf resumned; cleansed for sm loose bm; catheter care; repositioned; sr/ freq pvc on monitor; o2 per nc; will continue to monitor closely;
--- NOTE | 2020-03-06 11:50 | NUR ---
resting in bed/snoring; no apparent distress noted; iv intact and patent; no redness or edema noted at site; sr/pvc on monitor; friedman to gravity; o2 per nc; call light within reach; bed alarm set for pt safety; restraints remain in place; will continue to monitor
--- NOTE | 2020-03-06 14:00 | NUR ---
resting in bed; calm; no apparent distress noted; resp even and unlabored; iv intact and patent; o2 per nc; friedman to gravity; restraints intact; will continue to monitor
--- NOTE | 2020-03-06 15:20 | NUR ---
report given to Aroldo Castañeda LPN
--- NOTE | 2020-03-06 15:26 | NUR ---
medicated with vasotec iv for sbp 184
--- NOTE | 2020-03-06 19:30 | NUR ---
drowsy. does not fully arouse. o2 cont per nc. hob remains elevated. school lunch monitor shows sinus rhythm pvcs occas 3 beat runs hr 76. #22 rt wrist ns infusing @ 125cchr. friedman cath in place. urine clear yellow. bilat wrist restraints, fall precautions & bed alarm conts.
--- NOTE | 2020-03-06 22:00 | NUR ---
eyes closed. no distress. ardiac monitor shows sinus rhythm hr 78.
[2020-03-07] VITALS (17 sets, daily range): BP systolic 91–157; BP diastolic 43–80
--- NOTE | 2020-03-07 00:01 | NUR ---
resting quietly. nad. o2 cont. hob remains elevated.
--- NOTE | 2020-03-07 02:00 | NUR ---
resting quietly. resps even & unlabored. nad. lead data entry operator shows sinus kenyatta pvcs hr 58.
--- NOTE | 2020-03-07 04:30 | NUR ---
awake. calling out "i want to go home." oriented to name & place. drank 1 glass water & 1 can gatorade without coughing/choking.
--- NOTE | 2020-03-07 05:00 | NUR ---
eyes closed. nad.
--- NOTE | 2020-03-07 06:00 | NUR ---
eyes closed. no distress. uop less tonight.
--- NOTE | 2020-03-07 07:31 | NUR ---
REPORT RECEIVED FROM SALO FREITAS.
--- NOTE | 2020-03-07 07:45 | NUR ---
PT RESTING IN BED SEMI FOWLERS WITH EYES CLOSED AND NO SIGNS OF DISTRESS; RESPIRATIONS EVEN AND UNLABORED ON OXYGEN 2L VIA NC. PT AWAKENS TO LOUD VERBAL STIMULI; VERY DROWSY AND NEEDS FREQUENT VERBAL CUES TO STAY AWAKE AND FOCUSED. ORIENTED TO NAME AND ONLY. STATES HE DOES NOT KNOWN WHERE HE IS OR THE YEAR; SPEECH GARBLED AND DIFFICULT TO UNDERSTAND. PERRLA; PT DOES HAVE RIGHT SIDED FACIAL DROOP AND PARTIAL GAZE PALSY TO THE RIGHT EYE LOOKING TOWARDS THE RIGHT; PT STATES HE HAS DIFFICULTY SEEING, BUT SCORES ZERO ON ALL VISUAL NIH TESTS. BILATERAL SOFT WRIST RESTRAINTS INTACT; REMOVED AT THIS TIME; GOOD CSM TO HANDS. IV FLUIDS INFUSING WITHOUT DIFFICULTY; IV SITE APPEARS HEALTHY. 10F LANDERS CATHETER DRAINING CLEAR YELLOW URINE TO GRAVITY; LEG STRAP INTACT TO LEFT THIGH. SCDS REAPPLIED AND NOW INTACT TO BLE. SAFETY MEASURES IN PLACE INCLUDING BED ALARM. CALL LIGHT WITHIN REACH.
--- NOTE | 2020-03-07 08:00 | NUR ---
SPO2 98-100% ON 2L; OXYGEN TITRATED DOWN TO 1L VIA NC. PT ENCOURAGED TO ASSIST HIMSELF WITH REPOSITIONING AND MOVE AROUND IN THE BED FOR STRENGTH TRAINING. PT STATES THAT HE WANTS TO GO HOME; REINFORCED HIS NEED TO GET STRONGER AND BE ABLE TO FEED HIMSELF. PT ASSITED WITH RESPOSITIONING HE GRIPPED SIDE RAILS AND BENT KNEES TO HIGH FOWLERS AND SET UP FOR BREAKFAST. PT HAS DIFFICULTY WITH EATING; ELECTRICAL FITTER DRINKS, BUT DOES NOT BRING CUP/STRAW TO MOUTH; SAME WITH SPOON; MAKES EFFORT TO BRING SPOON TO MOUTH BUT UNABLE TO REACH MOUTH. PT ASSISTED WITH MEAL; ATE 100% AND DRANK ALL COFFEE; REPORTS THAT HE TYPICALLY DRINKS 4 CUPS OF COFFEE EVERY MORNING.
--- NOTE | 2020-03-07 08:15 | NUR ---
DR. VARNER AT BEDSIDE. PT MORE ALERT BY THIS TIME; NOW ORIENTED TO PERSON AND PLACE; ABLE TO STATE THE MONTH, BUT NOT THE YEAR. ANSWERS SOME QUESTIONS APPROPRIATELY, BUT HAS OCCASIONAL INAPPROPRIATE ANSWERS AND WILL BEGIN TALKING ABOUT UNRELATED SUBJECTS AND VERY DIFFICULT TO UNDERSTAND AT TIMES. NIH PERFORMED WITH MD AT BEDSIDE WITH A SCORE OF 8; DROWY AND NOT FULLY ALERT, PARTIAL BEST GAZE, PATRIAL RIGHT SIDED FACIAL DROOP, LIMB ATAXIA, AND BEST LANGUAGE. PT CONTINUES TO REQUEST GOING HOME. COOPERATIVE SINCE RESTRAINTS ARE REMOVED; DOES CALL OUT FOR NURSE. USING CALL LIGHT A TELEPHONE; REMINDED ON HOW TO USE CALL LIGHT.
--- NOTE | 2020-03-07 08:20 | NUR ---
LAB AT BEDSIDE FOR BLOOD DRAW. ORDERS RECEIVED FROM DR. MARIN INCLUDING MRI TO RULE OUT CVA.
[2020-03-07 08:53] LABS: ALKALINE PHOSPHATASE 66 u/l (38-126); BUN 7 mg/dL (8-23); BUN/CREATININE RATIO 14 (12-20 (CALC)); CARBON DIOXIDE 27 mmol/l (22-30); CHLORIDE 101 mmol/l (95-108); CREATININE 0.5 mg/dL (0.7-1.3); GFR > 60 ML/MIN (>=60 (CALC)); GFR FOR AFR.AMER. > 60 ML/MIN (>=60 (CALC)); SGOT/AST 27 u/l (19-48); SODIUM 132 mmol/l (137-146); TOTAL PROTEIN 5.3 g/dL (6.3-8.2)
[2020-03-07 08:57] LABS: ALBUMIN 3.1 g/dL (3.2-5.0); ANION GAP 7 (6-22 (CALC)); BILIRUBIN, TOTAL 0.5 mg/dL (0.0-1.4); POTASSIUM 3.2 mmol/l (3.5-5.1)
--- NOTE | 2020-03-07 09:33 | NUR ---
MEDS GIVEN CRUSHED IN PUDDING DUE TO FULL LIQUID DIET; PT DOES HAVE SOME LOOSE NONPRODUCTIVE COUGHING. SPO2 97-98% ON 1L; OXYGEN REMOVED AND NOW ON ROOM AIR; SPO2 CURRENTLY 96%. WILL CONTINUE TO MONITOR.
[2020-03-07 09:56] LABS: MAGNESIUM 1.8 mg/dL (1.6-2.3)
--- NOTE | 2020-03-07 10:26 | NUR ---
TYLENOL GIVEN WITH AM MEDS FOR MILD BILATERAL SHOULDER PAIN WITH GOOD EFFECT. POTASSIUM ALSO GIVEN FOR K+ OF 3.2. VISITOR AT BEDSIDE.
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
--- NOTE | 2020-03-07 11:39 | NUR ---
PHYSICAL THERPAY AT BEDSIDE; PT STOOD WITH ASSISTANCE AND TOOK SMALL STEPS TO BEDSIDE CHAIR. NOW RESTING IN CHAIR WITH FEET ELEVATED WATCHING TV. SR ON MEDICAL DIR; VSS; SPO2 95%. CALL LIGHT WITHIN REACH; CURTAIN OPEN FOR EASY VISUALIZATION OF PATIENT.
--- NOTE | 2020-03-07 12:05 | NUR ---
SPEECH THERAPY AT BEDSIDE. PT SITTING UP IN CHAIR AND SET UP FOR LUNCH; MORE ALERT AND ANSWERING QUESTIONS APPROPRIATELY, HOWEVER, SOME ANSWERS ARE INCORRECT.
--- NOTE | 2020-03-07 12:46 | NUR ---
UP TO BSC FOR SMALL BOWEL MOVEMENT; PARTIAL BATH AND LANDERS CARE PROVIDED AND LINENS CHANGED. INVENTORY SHEET UPDATED MINUS ID AND ONE SET OF KEYS; GLASSES PROVIDED TO PATIENT. AGAIN RESTING IN BEDSIDE CHAIR. COOPERATIVE, BUT DOES REQUIRE FREQUENT REMINDERS TO CALL FOR ASSISTANCE AND NOT GET UP WITHOUT HELP. CALL LIGHT REVIEWED AGAIN AND WITHIN REACH.
--- NOTE | 2020-03-07 15:19 | NUR ---
PT RESTLESS AND PULLING ON WIRES; WHEN REDIRECTED PT STATES THAT HE NEEDS TO HAVE A BOWEL MOVEMENT; INCONTINENT OF MODERATE AMOUNT OF LOOSE STOOL. ASSISTED TO BSC TO CONTINUE BM. HYGIENE PROVIDED AND PT ASSISTED INTO WHEELCHAIR WITH BRIEF IN PLACE. NOW SITTING CALMLY WATCHING TV. ONLY REQUEST AT THIS TIME IS FOR COFFEE.
--- NOTE | 2020-03-07 15:30 | NUR ---
OFF UNIT VIA WHEELCHAIR FOR MRI.
--- NOTE | 2020-03-07 16:47 | NUR ---
BACK TO UNIT AND POSITIONED INTO BED SEMI FOWLERS; RECONNECTED TO ATTACHMENTS; PT ONE PERSON ASSIST DUE TO WEAKNESS. VSS; SPO2 97-99% ON RA. SCDS IN PLACE. IV SITE FLUSHES WELL AND IV FLUIDS INFUSING AGAIN AT 125ML/HR. COFFEE PROVIDED PER PT REQUEST. CALL LIGHT REVIEWED AND WITHIN REACH. BED ALARM ON.
--- NOTE | 2020-03-07 18:15 | NUR ---
PT USED CALL LIGHT TO REQUEST HIS CELL PHONE; PT BEGAN MAKING PHONE CALLS, SPEAKING LOUDLY AND BECOMING AGITATED. PT ENCOURGED TO NOT MAKE ANY MORE PHONE CALLS AND TRY TO RELAX AND EAT HIS DINNER. REQUESTING MORE COFFEE.
--- NOTE | 2020-03-07 19:30 | NUR ---
PATIENT IS ALERT AND ORIENTED TO NAME, , CURRENT MONTH AND YEAR, AND PLACE. HAS GARBLED SPEECH. NO DROOP NOTED, BILATERAL JOURNALISM INTERN ARE WEAK. FOLLOWS DIRECTIONS. NURSE ASSESSMENT PERFORMED. LANDERS CATHETER INTACT, DRAINS YELLOW/CLOUDY URINE. R WRIST 22 G IV INTACT, FLSUHES PROPERLY, NS AT 125 ML/HR. SR ON TELEMETRY. ON RA, NO SOB NOTED, O2 SATS ARE GREATER THAN 95%. NO COMPLAINTS OF PAIN. NO ACUTE DISTRES SSHOWN. CALL LIGHT WITHIN REACH. SELF REPOSITIONS WITH VERBAL CUEING.
--- NOTE | 2020-03-07 21:34 | NUR ---
PATIENT UP TO BSC WITH X1 ASSIST, UNSTEADY GAIT. HAD A SMALL LOOSE BM. NOW BACK TO BED. CALL LIGHT WITHIN REACH.
--- NOTE | 2020-03-07 21:45 | NUR ---
PATIENT ABLE TO TOLERATE LOVENOX INJECTION. NO ACUTE DISTRESS SHOWN. NO OTHER NEEDS AT THIS TIME. BED ALARM BACK ON. CALL LIGHT WITHIN REACH.
--- NOTE | 2020-03-07 23:45 | NUR ---
PATIENT REPORTS HE DOES SMOKE, NICOTINE PATCH PLACED ON RADHA. NO ACUTE DISTRESS SHOWN. CALL LIGHT WITHIN REACH.
[2020-03-08] VITALS (12 sets, daily range): BP systolic 109–178; BP diastolic 45–100
--- NOTE | 2020-03-08 06:24 | NUR ---
PT RESTS IN BED. NO ACUTE DISTRESS SHOWN. NO COMPLAINTS OR NEEDS AT THIS TIME. CALL LIGHT WITHIN REACH.
--- NOTE | 2020-03-08 07:40 | NUR ---
REPORT RECEVIED FROM MARIAH VELIZ. PT RESTING IN BED SEMI FOWLERS; ALERT AND ORIENTED TO PERSON AT THIS TIME. DENIES PAIN. RESPIRATIONS EVEN AND UNLABORED ON ROOM AIR; SPO2 96%. REPOSITIONED UP INTO CHAIR FOR BREAKFAST WITH ONE PERSON ASSIST; PT REMAINS WEAK AND GAIT IS VERY UNSTEADY. VSS. PT RESTLESS AND FIGETING WITH ATTACHMENTS; FREQUENT VERBAL CUES NECESSARY TO NOT PULL OR MANEUVER WIRES AND TUBES. SAFETY MEASURES IN PLACE. CALL LIGHT REVIEWED AND WITHIN REACH.
[2020-03-08 08:10] LABS: IMMATURE GRANULOCYTES 0.3 % (0.0-5.0); MEAN CELL VOLUME 94.8 fL CALC (80.0-100.0); MEAN CORPUSCULAR HGB 31.7 pG CALC (26.0-32.0); MEAN CORPUSCULAR HGB CONC 33.4 g/dL CAL (32.0-36.0); NEUT# 2.5 thou/uL (1.82-7.42); RED BLOOD COUNT 3.47 mill/uL (4.70-6.10); RED CELL DISTRI WIDTH 13.2 % (11.5-15.5)
[2020-03-08 08:11] LABS: HEMATOCRIT 32.9 % (39.0-50.0)
[2020-03-08 08:24] LABS: ALBUMIN 2.5 g/dL (3.2-5.0); ALKALINE PHOSPHATASE 53 u/l (38-126); ANION GAP 5 (6-22 (CALC)); BILIRUBIN, TOTAL 0.3 mg/dL (0.0-1.4); BUN 9 mg/dL (8-23); BUN/CREATININE RATIO 13 (12-20 (CALC)); CARBON DIOXIDE 27 mmol/l (22-30); CHLORIDE 106 mmol/l (95-108); CREATININE 0.7 mg/dL (0.7-1.3); GFR > 60 ML/MIN (>=60 (CALC)); GFR FOR AFR.AMER. > 60 ML/MIN (>=60 (CALC)); MAGNESIUM 1.7 mg/dL (1.6-2.3); POTASSIUM 3.8 mmol/l (3.5-5.1); SGOT/AST 24 u/l (19-48); SODIUM 134 mmol/l (137-146); TOTAL PROTEIN 4.6 g/dL (6.3-8.2)
--- NOTE | 2020-03-08 08:39 | NUR ---
JESSICA FROM OCCUPATIONAL THERAPY AT BEDSIDE FOR EVAL.
--- NOTE | 2020-03-08 08:50 | NUR ---
UP TO BSC FOR LARGE LOOSE BOWEL MOVEMENT; HYGIENE PROIVDED AND RESTING IN CHAIR WATCHING TV.
--- NOTE | 2020-03-08 09:09 | NUR ---
AMBULATING ON UNIT WITH WALKER AND PT; ST ON UNIT TO INQUIRE ABOUT SCHEDULED MODIFIED BARRIUM SWALLOW.
--- NOTE | 2020-03-08 09:21 | NUR ---
OFF UNIT VIA WHEELCHAIR FOR MODIFIED BARRIUM SPEECH SWALLOW STUDY IN STABLE CONDITION.
--- NOTE | 2020-03-08 09:32 | NUR ---
GAIT TRAINING USING WALKER X 100 FEET, CGA FOR SAFETY PATIENT DISPLAYED POOR SAFETY AWARENESS AND GAIT INSTABILITY. PATIENT ALSO PERFORMED [id number] FROM RECLINER X 6 REPS, REQUIRED VERBAL CUES ON PROPER AND SAFE SEQUENCING. PATIENT WAS THEN TRANSFERRED FROM THE RECLINER TO WHEELCHAIR TO BE TRANSPORTED TO RADIOLOGY DEPARTMENT FOR SPEECH THERAPY EVALUATION. AMPAC = 10
--- NOTE | 2020-03-08 10:06 | NUR ---
PT RETURNED TO UNIT AT 0945; ASSISTED BACK INTO BED AND RECONNECTED TO ATTACHMENTS. ALL MEDS GIVEN WHOLE WITH WATER AND PT TOLEATED WELL. ST RECOMMENDS MECHANICAL SOFT DIET WITH CHOPPED MEAT AND EXTRA SAUCE/GRAVY TO KEEP MOIST AND THIN LIQUIDS. ALL BELONGINGS WITHIN REACH. BED ALARM ON PT DOES OCCASIONALLY ATTEMPT TO GET UP UNASSISTED.
--- NOTE | 2020-03-08 13:54 | NUR ---
PT RESTING IN BED ON RIGHT SIDE; REPOSITIONG SELF IN BED AND SLIGHTLY RESTLESS. NO REQUESTS OR CONCERNS AT THIS TIME. STILL REQUIRING VERBAL CUES AND ON BED ALARM. CALL LIGHT WITHIN REACH AND CURTAIN OPEN FOR EASY VIEW OF PATIENT.
--- NOTE | 2020-03-08 17:30 | NUR ---
REPOSITIONED INTO BEDSIDE CHAIR FOR DINNER; PT SET UP AND FEEDING HIMSELF; ACTIVITY LEVEL IS IMPROVED SINCE YESTERDAY AND PT IS MORE INDEPENDENT; CONTINUES TO NEED SUPERVISION AND ASSISTANCE WITH ADLS. TOLERATING MECHANICAL SOFT DIET WELL. LANDERS DRAINING CLEAR YELLOW URINE IN LARGE AMOUNTS. IV FLUIDS INFUSING WITHOUT DIFFICULTY; IV SITE APPEARS HEALTHY. CALL LIGHT WITHIN REACH.
--- NOTE | 2020-03-08 21:02 | NUR ---
PATIENT ABLE TO TOLERATE LOVENOX INJECTION. NO ACUTE DISTRESS SHOWN. NURSE ASSESSMENT PERFORMED. PATIENT ALERT AND ORIENTED X3. R-WRIST 22 G IV INTACT, FLUSHES PROPERLY, NS AT 125 ML/HR. PT SELF REPOSITIONS. NO COMPLAINTS OF PAIN. FOLLOWS DIRECTIONS. SR ON TELEMETRY. AFEBRILE. BP WNL. O2 SAT GREATER THAN 95% ON RA, NO SOB NOTED. CALL LIGHT WITHIN REACH.
[2020-03-09] VITALS (7 sets, daily range): BP systolic 97–171; BP diastolic 54–93
--- NOTE | 2020-03-09 00:05 | NUR ---
PATIENT RESTS WITH EYES CLOSED. NO ACUTE DISTRESS. NO COMPLAINTS OR NEEDS AT THIS TIME. CALL LIGHT WITHIN REACH.
--- NOTE | 2020-03-09 01:40 | NUR ---
PATIENT AWAKENS EASILY WHEN SPOKEN TO. PT IN NO ACUTE DISTRESS. NEW IV BAG OF NS INFUSING. IV AT R-WRIST INTACT, NO REDNESS OR TENDERNESS AT SITE.
--- NOTE | 2020-03-09 05:53 | NUR ---
PT CLINICAL TRIALS SPECIALIST LIGHT, COMPLAINS OF HIS LEFT HAND "SWOLLEN." R- WRIST IV DICONTINUED. NEW IV SITE ON LEFT HAND 22 G. PT ABLE TO TOLERATE.
--- NOTE | 2020-03-09 07:11 | NUR ---
PT TRANSFERRED TO MED/SURG ROOM 272 IN STABLE CONDITION VIA WHEELCHAIR ACCOMPANIED MARIAH NORRIS ;PT ASSISTED INTO HOSPITAL BED WITH X2 PERSON ASSIST;PT A&O X3, ORIENTED TO ROOM AND CALL LIGHT SYSTEM;PT DENIES ANY CURRENT PAIN OR DISCOMFORTS,PAIN SCALE AND REPORTING EDUCATED;RESPIRATIONS EVEN AND UNLABORED ON RA,CLEAR LUNG SOUNDS;ABDOMEN SOFT ON PALPATION AND ACTIVE IN ALL 4 QUADRANTS;STRONG PEDAL PULSES;SKIN INTACT;#20G TO LEFT HAND INFUSING NS @ 125ML/HR,SITE APPEARS HEALTHY;PT DENIES ANY ADDIITONAL NEEDS AT THIS TIME AND IS ENCOURAGED TO CALL FOR ASSISTANCE IF NEEDED;FALL PRECAUTIONS IN PLACE WITH BED IN THE LOWEST POSITION AND BED ALARM ON FOR SAFETY;CALL LIGHT IN REACH;WILL CONTINUE TO MONITOR
--- NOTE | 2020-03-09 07:34 | NUR ---
REPORT RECEIVED FROM MARIAH NORRIS.
--- NOTE | 2020-03-09 07:35 | NUR ---
BP ELEVATED AT 171/73 HR 68, MORNING MEDICATIONS TO BE ADMINISTERED PER ORDER AND BP TO BE REASSESSED.PT ASYMPTOMAIC AT THIS TIME;WILL CONTINUE TO MONITOR
--- NOTE | 2020-03-09 09:52 | NUR ---
BP RE-CHECK 132/54 HR 71
--- NOTE | 2020-03-09 11:09 | NUR ---
PT AMBULATING WITH PHYSICAL THERAPY AT THIS TIME.
--- NOTE | 2020-03-09 11:30 | NUR ---
PT RESTING IN SEMI FOWLERS POSITION;RESPIRATIONS REMAIN EVEN AND UNLABORED ON RA;PT DENIES ANY CURRENT PAIN OR DISCOMFORTS;IV SITE PATENT;LANDERS CATHETER PATENT DRAINING TO GRAVITY WITH EASE;ASSESSMENT REMAINS UNCHANGED AT THIS TIME;ENCOURAGED TO CALL FOR ASSISTANCE IF NEEDED;FALL PRECAUTIONS IN PLACE WITH BED IN THE LOWEST POSITION AND BED ALARM ON FOR SAFETY;CALL LIGHT IN REACH;WILL CONTINUE TO MONITOR
--- NOTE | 2020-03-09 11:56 | NUR ---
SPEECH THERAPY AT BEDSIDE
--- NOTE | 2020-03-09 15:30 | NUR ---
PT RESTING IN SEMI FOWLERS POSITION;RESPIRATIONS EVEN AND UNLABORED ON RA;PT DENIES ANY CURRENT PAIN OR DISCOMFORTS;IV SITE PATENT;LANDERS CATHETER DRAINING TO GRAVITY WITH EASE;PT ENCOURAGED TO CALL FOR ASSISTANCE IF NEEDED;FALL PRECAUTIONS REMAIN IN PLACE WITH BED IN THE LOWEST POSITION AND BED ALARM ON FOR SAFETY;CALL LIGHT IN REACH;WILL CONTINUE TO MONITOR
--- NOTE | 2020-03-09 20:10 | NUR ---
PT MEDICATED ORDERS PROVIDE. BED ALARM ON. PT LOC X3, BUT APPEARS SOMEWHAT CONFUSED ON CIRCTUMSTANCES. ASSESSMENT COMPLETED, NEURO'S ARE INTACT AT THIS TIME. CALL LIGHT W/IN REACH.
--- NOTE | 2020-03-09 22:40 | NUR ---
PT UP TO BSC AND BACK TO BED. BED ALARM ON AND DOOR LEFT OPEN.
[2020-03-10 04:15] VITALS: BP 126/67
--- NOTE | 2020-03-10 04:35 | NUR ---
PT CALLED TO ASK THAT HIS PENIS/LANDERS INSERTION SITE BE CHECKED, HE STATES THAT HE THINKS IT'S "NURSING HOME OUT." LANDERS APPEARS TO BE DRAINING TO GRAVITY CLEAR YELLOW URINE, LEG STRAP IN PLACE AND TUBING APPEARS NON-TWISTED AND STRAIGHT/PATENT.
--- NOTE | 2020-03-10 07:05 | NUR ---
REPORT RECEIVED FROM MARIAH SANTACRUZ;PT APPEARS TO BE SLEEPING IN SEMI FOWLERS POSITION;RESPIRATIONS EVEN AND UNLABORED ON RA;NO S/S OF DISTRESS NOTED;LANDERS CATHETER PATENT DRAINING TO GRAVITY WITH EASE;ALL SAFETY PRECAUTIONS REMAIN IN PLACE WITH BED IN THE LOWEST POSITION AND BED ALARM ON FOR SAFETY;CALL LIGHT IN REACH;WILL CONTINUE TO MONITOR
[2020-03-10 08:17] VITALS: BP 142/64
--- NOTE | 2020-03-10 08:20 | NUR ---
PT RESTING IN SEMI FOWLERS POSITION,A&O X3 BUT FORGETFUL AT TIMES;VS OBTAINED AND ASSESSMENT COMPLETED;PT DENIES ANY CURRENT PAIN OR DISCOMFORTS,PAIN SCALE AND REPORTING EDUCATED;RESPIRATIONS EVEN AND UNLABORED ON RA,CLEAR/DIMINISHED LUNG SOUNDS NOTED;ABDOMEN SOFT ON PALPATION AND ACTIVE IN ALL 4 QUADRANTS;STRONG PEDAL PULSES;SKIN INTACT;#22G TO LEFT HAND FLUSHED AND PATENT,SITE APPEARS HEALTHY;LANDERS CATHETER PATENT DRAINING CLEAR/YELLOW URINE TO GRAVITY WITH EASE;PT DENIES ANY ADDITIONAL NEEDS AND IS ENCOURAGED TO CALL FOR ASSISTANCE IF NEEDED;FALL PRECAUTIONS IN PLACE WITH BED IN THE LOWEST POSITION AND BED ALARM ON FOR SAFETY;CALL LIGHT IN REACH;WILL CONTINUE TO MONITOR
[2020-03-10 08:23] VITALS: BP 142/64
--- NOTE | 2020-03-10 08:45 | NUR ---
AT BEDSIDE DISCUSSING POC INCLUDING PLANS TO D/C HOME.
--- NOTE | 2020-03-10 09:05 | NUR ---
PT LANDERS CATHETER REMOVED AT THIS TIME PER ORDER, PT TOLERATED WELL;WILL CONTINUE TO MONITOR
--- NOTE | 2020-03-10 11:05 | NUR ---
PT RESTING IN SEMI FOWLERS POSITION;RESPIRATIONS EVEN AND UNLABORED ON RA;PT DENIES ANY CURRENT PAIN OR DISCOMFORTS;IV SITE PATENT;ASSESSMENT REMAINS UNCHANGED AT THIS TIME;PT VERBALIZES UNDERSTANDING ON PLANS TO D/C HOME;PT DENIES ANY ADDITIONAL NEEDS AT THIS TIME AND IS ENCOURAGED TO CALL FOR ASSISTANCE IF NEEDED;FALL PRECAUTIONS IN PLACE WITH BED IN THE LOWEST POSITION AND CALL LIGHT IN REACH;WILL CONTINUE TO MONITOR
--- NOTE | 2020-03-10 11:22 | NUR ---
NOTIFIED GERHARD GREEN AT [facility] OF PT D/C.
--- NOTE | 2020-03-10 11:35 | NUR ---
[facility] SIGNAL INTELLIGENCE/ELECTRONIC WARFARE AT BEDSIDE.
--- NOTE | 2020-03-10 12:32 | NUR ---
ALL DISCHARGE INSTRUCTIONS PROVIDED AT THIS TIME;PT INSTRUCTED TO F/U WITH PCP IN THE NEXT FEW DAYS, TAKE HOME MEDICATIONS PRESCRIBED, & HAVE HOME HEALTH AND PT;PT DENIES ANY ADDITIONAL QUESTIONS OR NEEDS;IV SITE REMOVED WITH CATHETER INTACT;PT FRIEND TO TRANSPORT PT HOME;WHEELCHAIR TO BE PROVIDED FOR D/C HOME;CALL LIGHT IN REACH WITH BED ALARM IN PLACE;WILL CONTINUE TO MONITOR
--- NOTE | 2020-03-10 13:44 | NUR ---
Discharge instructions given. Patient verbalizes understanding of same. Discharged in stable condition via Wheelchair to Home with friend. All belongings sent with pt. PT TRANSPORTED TO [facility] IN STABLE CONDITION VIA WHEELCHAIR ACCOMPANIED BY MARIAH WHITNEY;ALL BELONGINGS LEFT WITH PT AT THIS TIME;FRIEND "LYDIA" TO TRANSPORT PT HOME.
== END 2020-03-10 13:44 | disposition home health service (06) | DRG 91 ==
LOC: ED 17:25 → ED-I 20:53 → ED 21:03 → ICU 21:04 → MS2 03-09 07:11
PROVIDERS: Family Medicine; Internal Medicine; Nurse Practitioner; ADMIT Internal Medicine; ATTEND Internal Medicine
PROC: 0BH17EZ Insertion of Endotracheal Airway into Trachea, Via Natural or Artificial Opening (ICD-10-PCS; principal; 2020-03-02)
PROC: 5A1945Z Respiratory Ventilation, 24-96 Consecutive Hours (ICD-10-PCS; 2020-03-02)
PROC: 0T9B70Z Drainage of Bladder with Drainage Device, Via Natural or Artificial Opening (ICD-10-PCS; 2020-03-02)
DX: G92 Toxic encephalopathy (principal); J96.01 Acute respiratory failure with hypoxia; I10 Essential (primary) hypertension; G47.30 Sleep apnea, unspecified; D35.2 Benign neoplasm of pituitary gland; E78.5 Hyperlipidemia, unspecified; J44.9 Chronic obstructive pulmonary disease, unspecified; F10.10 Alcohol abuse, uncomplicated; I49.3 Ventricular premature depolarization; Z78.1 Physical restraint status; Z20.828 Contact with and (suspected) exposure to other viral communicable diseases
CPT/HCPCS: A9579; J1650; J2060; S0164

== ENCOUNTER 2021-01-14 13:07 | Emergency (ER) | payer MEDICARE, MEDICAID ==
[~2021-01-14] VITALS: Ht 167.6 cm; Wt 65.0 kg
[~2021-01-14 13:07] MED LIST changes: +AMLODIPINE BESY10 MG PO; +CABERGOLINE PO; +FLONASE AL50 MCG/AC1; +LEXAPRO10 MG PO; +LISINOPRIL40 MG PO; +PROVENTIL HFA IN; +TAMSULOSIN0.4 MG PO; +XANAX0.5 MG PO
[2021-01-14 14:05] LABS: HEMATOCRIT 40.8 % (39.0-50.0); HEMOGLOBIN 12.9 g/dl (14.0-18.0); IMMATURE GRANULOCYTES 0.5 % (0.0-5.0); MEAN CORPUSCULAR HGB 29.7 pG CALC (26.0-32.0); MEAN CORPUSCULAR HGB CONC 31.6 g/dL CAL (32.0-36.0); NEUT# 8.14 thou/uL (1.82-7.42); RED BLOOD COUNT 4.34 mill/uL (4.70-6.10); RED CELL DISTRI WIDTH 13.6 % (11.5-15.5)
[2021-01-14 14:25] LABS: ALBUMIN 4.1 g/dL (3.2-5.0); ALKALINE PHOSPHATASE 78 u/l (38-126); AMYLASE 59 u/l (30-110); BILIRUBIN, TOTAL 0.8 mg/dL (0.0-1.4); BUN 17 mg/dL (8-23); BUN/CREATININE RATIO 23 (12-20 (CALC)); CHLORIDE 97 mmol/l (95-108); CREATININE 0.8 mg/dL (0.7-1.3); ETHYL ALCOHOL 0 mg/dl (0-30); GFR > 60 ML/MIN (>=60 (CALC)); GFR FOR AFR.AMER. > 60 ML/MIN (>=60 (CALC)); LIPASE 27 u/l (23-300); POTASSIUM 4.6 mmol/l (3.5-5.1); SGOT/AST 28 u/l (19-48); TOTAL PROTEIN 7.1 g/dL (6.3-8.2)
[2021-01-14 14:26] LABS: ANION GAP 13 (6-22 (CALC)); CARBON DIOXIDE 22 mmol/l (22-30); SODIUM 127 mmol/l (137-146)
[2021-01-14 14:44] LABS: ACT PARTIAL THROMBO TIME 24.9 SECONDS (20.0-32.5); PROTHROMBIN TIME 10.3 SECONDS (9.0-12.5)
[2021-01-14 14:57] VITALS: BP 112/65
== END 2021-01-14 14:57 | disposition short-term general hospital (02) ==
LOC: ED 13:07
PROC: 0BH17EZ Insertion of Endotracheal Airway into Trachea, Via Natural or Artificial Opening (ICD-10-PCS; principal; 2021-01-14)
DX: I62.9 Nontraumatic intracranial hemorrhage, unspecified (principal); G93.49 Other encephalopathy; D35.2 Benign neoplasm of pituitary gland; I10 Essential (primary) hypertension; E78.5 Hyperlipidemia, unspecified; F41.9 Anxiety disorder, unspecified; F32.9 Major depressive disorder, single episode, unspecified; J44.9 Chronic obstructive pulmonary disease, unspecified; Z20.822 Contact with and (suspected) exposure to COVID-19
CPT/HCPCS: J1953